=== PATIENT | male | born 1960 | race Caucasian/White ===

== ENCOUNTER 2018-07-18 13:48 | Emergency (ER) | payer MEDICARE, SELFPAY ==
[2018-07-18] MEDS ORDERED: Ondansetron ODT 4 MG TAB ONE (15:09)
[2018-07-18] MEDS ORDERED: Acetaminophen 500 MG TAB ONE (15:09)
== END 2018-07-18 16:31 | disposition home or self-care (01) ==
LOC: ERS 13:48
DX: B34.9 Viral infection, unspecified (principal); E11.9 Type 2 diabetes mellitus without complications; E78.5 Hyperlipidemia, unspecified; I10 Essential (primary) hypertension
CPT/HCPCS: 87804; 99284; Q0162

== ENCOUNTER 2018-11-20 09:23 | Outpatient (CLI) | payer MEDICARE ==
--- NOTE | 2018-11-20 10:11 | CT ---
CT ABDOMEN AND PELVIS: DATE: 11/20/2018. COMPARISON: None. HISTORY: Low back pain, elevated alkaline phosphatase levels. TECHNIQUE: Axial CT imaging at 5 mm intervals from lung bases through pubic symphysis with IV and oral contrast. Coronal reformatted imaging obtained. FINDINGS: The imaged lung bases are unremarkable. No free intraperitoneal air or fluid is noted. There is a vague hypodensity within the right lobe of the liver measuring 9 mm, best seen on coronal image 129, too small to characterize. Hepatic parenchyma appears relatively hypodense suggesting a degree of steatosis. Two small gallstones are noted within the gallbladder lumen. The spleen, pancrea s, and adrenal glands are unremarkable. There is mild symmetric perinephric stranding. No evidence for obstructive uropathy is noted on eithe r side. There is moderate prominence of the prostate gland. There is no evidence for bowel inflammatory change or obstruction. The appendix appears within normal limits. There are no enlarged abdominal or pelvic lymph nodes. There is scattered atherosclerotic calcification of the abdominal aorta and its branches. Review of the osseous structures demonstrates multilevel right lateral and right anterior lower thora cic spine osteophyte formation. There are no worrisome lytic or blastic bone lesions. There is multilevel lower lumbar spine facet hypertrophic change. There is degenerative change involv ing bilateral sacroiliac joints. IMPRESSION: Numerous incidental findings as detailed above. No acute findings are noted within the abdomen/pelvis . Transcribed Date/Time: 11/20/2018 10:24 AM
== END 2018-11-20 09:24 | disposition home or self-care (01) ==
LOC: SCSCT 09:23
PROVIDERS: ATTEND Family Medicine
DX: R74.8 Abnormal levels of other serum enzymes (principal)
CPT/HCPCS: 74177

== ENCOUNTER 2020-11-19 13:43 | Outpatient (CLI) | payer MEDICARE | END 2020-11-19 13:44 | disposition home or self-care (01) | LOC: BICMRI 13:43 | PROVIDERS: ATTEND Family Medicine | DX: M51.16 Intervertebral disc disorders with radiculopathy, lumbar region (principal); M51.17 Intervertebral disc disorders with radiculopathy, lumbosacral region; M47.26 Other spondylosis with radiculopathy, lumbar region; M48.061 Spinal stenosis, lumbar region without neurogenic claudication | CPT/HCPCS: 72148 ==

== ENCOUNTER 2022-02-23 10:39 | Outpatient (CLI) | payer MEDICARE, MEDICAID | END 2022-02-23 10:40 | disposition home or self-care (01) | LOC: BICRAD 10:39 | PROVIDERS: ATTEND Family Medicine | DX: Z01.818 Encounter for other preprocedural examination (principal) | CPT/HCPCS: 71046 ==

== ENCOUNTER 2024-07-10 13:47 | Outpatient (CLI) | payer MEDICARE, MEDICAID | END 2024-07-10 13:48 | disposition home or self-care (01) | LOC: SCSRAD 13:47 | PROVIDERS: ATTEND Orthopaedic Surgery | DX: M54.50 Low back pain, unspecified (principal) | CPT/HCPCS: 72100 ==